=== PATIENT | female | born 1970 | race African-American/Black ===

== ENCOUNTER 2016-11-27 03:06 | Emergency (ER) | payer OTHER ==
[2016-11-27 03:20] VITALS: BP 91/62; PULSE 77; TEMP 98.5; BMI 25.4
[2016-11-27] MEDS ORDERED: SODIUM CHLORIDE 1,000 ML IV STA (03:29)
[2016-11-27 03:51] LABS: MCH 32.1 pg (25.7-33.7); MCHC 34.4 g/dl (32.0-36.0); MEAN CELL VOLUME 93.5 fl (80-96); MEAN PLT VOLUME 9.8 fl (7.5-11.1); PLATELET COUNT 332 K/MM3 (134-434); RDW 13.6 % (11.6-15.6); WHITE BLOOD COUNT 11.1 K/mm3 (4.0-10.0)
--- NOTE | 2016-11-27 04:10 | PDOC ---
History of Present Illness - General Chief Complaint: Weakness Stated Complaint: WEAKNESS Time Seen by Provider: 11/27/16 03:13 History Source: Patient, Significant Other Exam Limitations: No Limitations - History of Present Illness Travel History: No Initial Comments: 11/27/16 04:05 46yo Female patient presents to ED c/o "food poisoning." Patient states 1 week ago Sunday, she ate a sandwich and became really sick. Patient was seen by pcp Dr. Sawyer on Sunday and prescribed (Tylenol w/ Codeine) and told to rest. Patient states symptoms got worse/progressed to SOB, weakness with generalized abd pain. Patient reports she is able to tolerate po fluids/solids. Patient denies any other complaints. PCP Dr. Sawyer Timing/Duration: reports: getting worse Quality: reports: moderate Abdominal Pain Onset Location: reports: generalized abdomen Pain Radiation: reports: no radiation Activities at Onset: reports: no specific activity Treatment Prior to Arrive: worse with: analgesics, antacids, cold pack, heat, laxative, enema, other Aggravating Factors: worse with: None, Defecation, Eating, Emotional upset, Exertion, [place], Movement, Voiding, Change in position Alleviating Factors: worse with: None, Belching, Shallow Breathing, Defecation, Eating, Holding Breath, Passing Gas, Change in Position, Rest, Voiding, Vomiting Past History - Travel Traveled outside of the country in the last 30 days: No Close contact w/someone who was outside of country & ill: No - Past Medical History Allergies/Adverse Reactions: Allergies Allergy/AdvReac Type Severity Reaction Status Date / Time hydromorphone HCl Allergy Verified 11/27/16 03:52 [From Dilaudid] Home Medications: Ambulatory Orders Cholecalciferol (Vitamin D3) [Vitamin D3 -] 0 unit PO DAILY 11/27/16 Ciprofloxacin [Cipro (Restricted To Id)] 500 mg PO Q12H #20 tablet 11/27/16 Metronidazole [Flagyl -] 500 mg PO DAILY #20 tablet 11/27/16 Ondansetron [Zofran Odt -] 4 mg SL Q6H PRN #28 od.tablet 11/27/16 Cancer: Yes Cardiac Disorders: Yes (long qt, PM) - Psycho/Social/Smoking Cessation Hx Suicidal Ideation: No Smoking History: Never smoked Abd/GI Specific PMHX - Complaint Specific PMHX Colitis: No Diverticulitis: No Gall Bladder Disease: No GERD: No Hepatitis: No Irritable Bowel Synd (IBS): No Pancreatitis: No GI Ulcer Disease: No Review of Systems - Review of Systems Able to Perform ROS?: Yes Is the patient limited Sami proficient: No Constitutional: Yes: Malaise, Weakness. No: Chills, Fever Respiratory: No: Cough, Orthopnea, Shortness of Breath, Stridor, Wheezing, Productive cough Cardiac (ROS): No: Chest Pain, Lightheadedness, Palpitations, Syncope, Chest Tightness ABD/GI: Yes: Diarrhea. No: Constipated, Nausea, Poor Appetite, Poor Fluid Intake, Vomiting : No: Dysuria, Hematuria Musculoskeletal: No: Back Pain Integumentary: No: Erythema, Rash Neurological: No: Headache, Numbness, Paresthesia, Seizure, Tingling, Tremors, Weakness, Ataxia, Dizziness All Other Systems: Reviewed and Negative *Physical Exam - Vital Signs Last Vital Signs Temp Pulse Resp BP Pulse Ox 98.5 F 77 18 91/62 98 11/27/16 03:16 11/27/16 03:16 11/27/16 03:16 11/27/16 03:16 11/27/16 03:16 - Physical Exam General Appearance: Yes: Nourished, Appropriately Dressed, Moderate Distress. No: Apparent Distress, Mild Distress, Severe Distress Neck: positive: Trachea midline, Supple. negative: Lymphadenopathy (R), Lymphadenopathy (L) Respiratory/Chest: positive: Lungs Clear, Normal Breath Sounds. negative: Respiratory Distress, Accessory Muscle Use, Labored Respiration, Rapid RR Cardiovascular: positive: Regular Rhythm, Regular Rate. negative: Edema, JVD, Murmur Gastrointestinal/Abdominal: positive: Soft, Decreased BS, Tenderness ( Generalized). negative: Normal Bowel Sounds, Distended, Guarding, Rebound Musculoskeletal: positive: Normal Inspection. negative: CVA Tenderness Extremity: positive: Normal Capillary Refill, Normal Inspection, Normal Range of Motion Integumentary: positive: Normal Color, Dry, Warm Neurologic: positive: health safety specialist II-XII NML intact, Fully Oriented, Alert, Normal Mood/ Affect, Normal Response, Motor Strength 5/5 ED Treatment Course - LABORATORY CBC & Chemistry Diagram: 11/27/16 03:38 11/27/16 03:38 - ADDITIONAL ORDERS Additional order review: Laboratory Results 11/27/16 03:38 Sodium Cancelled Potassium Cancelled Chloride Cancelled Carbon Dioxide Cancelled Anion Gap Cancelled BUN Cancelled Creatinine Cancelled Random Glucose Cancelled Calcium Cancelled 11/27/16 03:38 RBC 4.37 MCV 93.5 MCHC 34.4 RDW 13.6 MPV 9.8 Neutrophils % Gre Instructor Lymphocytes % Gre Instructor Monocytes % Gre Instructor Eosinophils % Gre Instructor Basophils % Gre Instructor - RADIOLOGY Radiology Studies Ordered: Category Date Time Status ABDOMEN FLAT & UPRIGHT [RAD] Stat Radiology 11/27/16 03:30 Taken CHEST X-RAY PORTABLE* [RAD] Stat Radiology 11/27/16 03:22 Taken Progress Note - Progress Note Progress Note: Report Viewer powered by: [employer] Name: Migue Mena : 1970 Sex: F Study Date & Time: 11/27/201603:53:47 Description: ABDOMEN FLAT & UPRIGHT Airdox Fitter: ([id number]) Begin of Report Content Referring Physician: Artem Kitchen Patient Name: Kt Camarena THIS IS A PRELIMINARYREPORT FROM IMAGING SHIPPING CLERK/ADMIN EXAM: Supine and erect abdomen x-ray IMAGES: 3 EXAM DATE AND TIME: 2016-11-27 03:53:47.0 REASON FOR EXAM: Question obstruction COMPARISON: No FINDINGS: Nonspecific nonobstructive bowel gas pattern is noted. No free intraperitoneal air identified. No acute intra-abdominal abnormalities are detected. Pacemaker and wires noted. The visualized portions of the lungs (excluding the apices) are clear. THIS DOCUMENT HAS BEEN ELECTRONICALLY SIGNED Daren Gottlieb MD 11/27/2016 04:31 [place] Carlin Please call Imaging Control Supervisor [phone]) with questions. *DC/Admit/Observation/Transfer Diagnosis at time of Disposition: Food poisoning Qualifiers: Encounter type: initial encounter Injury intent: accidental or unintentional Qualified Code(s): T62.91XA - Toxic effect of unspecified noxious substance eaten as food, accidental (unintentional), initial encounter - Discharge Dispostion Disposition: HOME Condition at time of disposition: Improved Admit: No - Prescriptions Prescriptions: Ciprofloxacin [Cipro (Restricted To Id)] 500 mg PO Q12H #20 tablet Metronidazole [Flagyl -] 500 mg PO DAILY #20 tablet Ondansetron [Zofran Odt -] 4 mg SL Q6H PRN #28 od.tablet PRN Reason: nausea. - Patient Instructions Printed Discharge Instructions: DI for Food Poisoning Additional Instructions: FOLLOW UP WITH YOUR DOCTOR THIS WEEK FOR FURTHER EVALUATION. CONTINUE TO HYDRATE YOURSELF UNTIL APPETITE RETURNS AND YOU ARE ARE TOLERATED FOODS. TAKE ANTIBIOTICS WITH FOOD IF ABLE. GET LOTS OF REST. NO WORK X 5 DAYS, I HAVE SUPPLIED A WORK NOTE. RETURN IF WORSENING OF SYMPTOMS. Print Language: AZERI - Post Discharge Activity Work/School Note: Back to Work
[2016-11-27 04:12] LABS: ALBUMIN 3.4 g/dl (3.4-5.0); ALK PHOS 66 U/L (45-117); ANION GAP 11 (8-16); BILIRUBIN,TOTAL 0.7 mg/dL (0.2-1.0); CALCIUM 8.7 mg/dL (8.5-10.1); CO2 26 mmol/L (21-32); CREATININE 0.8 mg/dL (0.55-1.02); GLUCOSE,RANDOM 93 mg/dL (74-106); SGPT/ALT 21 U/L (12-78); TOT PROT 7.6 g/dl (6.4-8.2)
[2016-11-27 04:14] LABS: SGOT/AST 30 U/L (15-37)
[2016-11-27 04:15] LABS: TROPONIN I < 0.02 ng/ml (0.00-0.05)
[2016-11-27 04:25] LABS: AMYLASE 49 U/L (25-115)
[2016-11-27] MEDS ORDERED: metroNIDAZOLE 250 MG TABLET PO ONE (05:32)
[2016-11-27] MEDS ORDERED: metroNIDAZOLE 250 MG TABLET ONE (05:40)
[2016-11-27 06:05] LABS: ANISOCYTOSIS OCC; PLATELET ESTIMATE ADEQUATE (NORMAL)
--- NOTE | 2016-11-27 12:21 | EKG ---
Test Reason : Blood Pressure : / mmHG Vent. Rate : 079 BPM Atrial Rate : 079 BPM P-R Int : 138 ms QRS Dur : 082 ms QT Int : 410 ms P-R-T Axes : 065 024 036 degrees QTc Int : 470 ms NORMAL SINUS RHYTHM POSSIBLE LEFT ATRIAL ENLARGEMENT LOW VOLTAGE QRS BORDERLINE ECG WHEN COMPARED WITH ECG OF 15-APR-2011 09:24, NO SIGNIFICANT CHANGE WAS FOUND Confirmed by JOVANA SUAREZ MD ([id number]) on 11/27/2016 12:20:37 PM Referred By: Confirmed By:JOVANA SUAREZ MD
[2016-11-28 14:43] LABS: BILIRUBIN,DIRECT < 0.1 mg/dL (0.0-0.2)
== END 2016-11-27 05:58 | disposition home or self-care (01) ==
LOC: JER 03:06
PROC: 3E0337Z Introduction of Electrolytic and Water Balance Substance into Peripheral Vein, Percutaneous Approach (ICD-10-PCS; principal; 2016-11-27)
DX: T62.8X1A Toxic effect of other specified noxious substances eaten as food, accidental (unintentional), initial encounter (principal); R10.84 Generalized abdominal pain; Y92.89 Other specified places as the place of occurrence of the external cause
CPT/HCPCS: 36415; 71010-TC; 74020-TC; 80053; 80076; 82150; 82550; 83690; 84484; 85025; 93005; 93010; 99282-25

== ENCOUNTER 2017-08-01 02:49 | Emergency (ER) | payer OTHER ==
[2017-08-01 03:14] VITALS: BP 108/69; PULSE 84; TEMP 98.5; BMI 25.2
[2017-08-01] MEDS ORDERED: ALBUTEROL SO4 2.5/IPRATROPIUM 0.5 INH SOL 3 ML VIAL.NEB. NEB ONE ×2 (03:29→03:47)
[2017-08-01] MEDS ORDERED: ACETAMINOPHEN 325 MG TABLET (FP) PO ONE (03:29)
--- NOTE | 2017-08-01 03:41 | PDOC ---
History of Present Illness - General Chief Complaint: Shortness of Breath Stated Complaint: S.O.B. Time Seen by Provider: 08/01/17 03:23 History Source: Patient - History of Present Illness Initial Comments: 08/01/17 04:41 46-year-old Female complaining of cough, URI, throat pain, shortness of breath with cough at home.. Patient has a past medical history of prolonged QTC with ICD. reports feeling chills no fever at home. Past History - Past Medical History Allergies/Adverse Reactions: Allergies Allergy/AdvReac Type Severity Reaction Status Date / Time hydromorphone HCl Allergy Verified 08/01/17 03:21 [From Dilaudid] vancomycin Allergy Verified 08/01/17 03:21 Home Medications: Ambulatory Orders Cholecalciferol (Vitamin D3) [Vitamin D3 -] 0 unit PO DAILY 11/27/16 Metronidazole [Flagyl -] 500 mg PO DAILY #20 tablet 11/27/16 Ondansetron [Zofran Odt -] 4 mg SL Q6H PRN #28 od.tablet 11/27/16 Azithromycin 250 mg PO BIDLASIX #6 tablet 08/01/17 Cancer: Yes Cardiac Disorders: Yes (long qt, PM) COPD: No - Suicide/Smoking/Psychosocial Hx Smoking History: Never smoked Have you smoked in the past 12 months: No Information on smoking cessation initiated: No Hx Alcohol Use: No Drug/Substance Use Hx: No Substance Use Type: None Review of Systems - Review of Systems Able to Perform ROS?: Yes Is the patient limited Hebrew proficient: No HEENTM: Yes: Nose Congestion, Throat Pain Respiratory: Yes: Cough, Shortness of Breath, Productive cough (green sputum) Cardiac (ROS): No: Symptoms Reported, See HPI, Chest Pain, Edema, Irregular Heart Rate, Lightheadedness, Palpitations, Syncope, Chest Tightness, Other ABD/GI: No: Symptoms Reported, See HPI, Abdominal Distended, Abd. Pain w/ defecation, Blood Streaked Bowels, Constipated, Diarrhea, Difficulty Swallowing , Nausea, Poor Appetite, Poor Fluid Intake, Rectal Bleeding, Vomiting, Indigestion, Abdominal cramping, Tarry Stools, Other *Physical Exam - Vital Signs Last Vital Signs Temp Pulse Resp BP Pulse Ox 98.5 F 84 18 108/69 99 08/01/17 03:16 08/01/17 03:11 08/01/17 03:11 08/01/17 03:11 08/01/17 03:11 - Physical Exam General Appearance: Yes: Appropriately Dressed HEENT: negative: EOMI, NYA, Normal ENT Inspection, Normal Voice, Symmetrical, TMs Normal, Pharynx Normal, Pale Conjunctivae, Photophobia, Scleral Icterus (R) , Scleral Icterus (L), Muffled/Hoarse voice, Pharyngeal Erythema, Tonsillar Exudate, Tonsillar Erythema, Nasal Congestion, Rhinorrhea, Sinus Tenderness, Orbits, Hearing Decreased, Hearing Grossly Normal, TM Bulging, TM Dull, TM Erythema, Lesions, Olivia, Excessive drooling, Thrush, Other Respiratory/Chest: positive: Lungs Clear, Normal Breath Sounds Gastrointestinal/Abdominal: positive: Normal Bowel Sounds, Soft Extremity: positive: Normal Capillary Refill, Normal Inspection, Normal Range of Motion Integumentary: positive: Normal Color, Dry, Warm Neurologic: positive: Fully Oriented, Normal Mood/Affect Progress Note - Progress Note Progress Note: A: bronchitis P: chest xray: no acute disease albuterol not given due to adverse effect of prolonged QTc> azithromycin. strict return precautions reviewed with patient. *DC/Admit/Observation/Transfer Diagnosis at time of Disposition: Bronchitis - Discharge Dispostion Disposition: HOME - Prescriptions Prescriptions: Azithromycin 250 mg PO BIDLASIX #6 tablet - Referrals Referrals: Hector Sawyer MD [Primary Care Provider] - Call tomorrow - Patient Instructions Printed Discharge Instructions: DI for Acute Bronchitis Additional Instructions: take azithromycin as as prescribed. take tylenl or ibuprofen every 6 hours as needed for pain. follow up with your doctor as soon as possible. return to the ER if symptoms worsen.
[2017-08-01] MEDS ORDERED: ACETAMINOPHEN 325 MG TABLET (FP) ONE (03:47)
[2017-08-01] MEDS ORDERED: SODIUM CHLORIDE FOR INHALATION 3 ML VIAL.NEB IH ONE (04:04)
--- NOTE | 2017-08-01 05:03 | PDOC ---
*Physical Exam - Vital Signs Last Vital Signs Temp Pulse Resp BP Pulse Ox 98.5 F 84 18 108/69 99 08/01/17 03:16 08/01/17 03:11 08/01/17 03:11 08/01/17 03:11 08/01/17 03:11 ED Treatment Course - Medications Given in the ED: ED Medications Discontinued Medications Generic Name Dose Route Start Last Admin Trade Name Vanita PRN Reason Stop Dose Admin Acetaminophen 650 mg 08/01/17 03:29 08/01/17 04:15 Tylenol - PO 08/01/17 03:30 650 mg ONCE ONE Administration Albuterol/Ipratropium 1 amp 08/01/17 03:29 08/01/17 04:16 Duoneb - NEB 08/01/17 03:30 Not Given ONCE ONE Sodium Chloride 3 ml 08/01/17 04:04 08/01/17 04:20 Normal Saline For Inhalation - IH 08/01/17 04:05 3 ml ONCE ONE Administration Medical Decision Making - Medical Decision Making 08/01/17 05:03 agree with care from MARIA ESTHER Lai *DC/Admit/Observation/Transfer Diagnosis at time of Disposition: Bronchitis - Prescriptions Prescriptions: Azithromycin 250 mg PO BIDLASIX #6 tablet - Referrals Referrals: Hector Sawyer MD [Primary Care Provider] - Call tomorrow - Patient Instructions Printed Discharge Instructions: DI for Acute Bronchitis Additional Instructions: take azithromycin as as prescribed. take tylenl or ibuprofen every 6 hours as needed for pain. follow up with your doctor as soon as possible. return to the ER if symptoms worsen. - Post Discharge Activity
== END 2017-08-01 06:04 | disposition home or self-care (01) ==
LOC: JER 02:49
PROC: 3E0F7GC Introduction of Other Therapeutic Substance into Respiratory Tract, Via Natural or Artificial Opening (ICD-10-PCS; principal; 2017-08-01)
DX: J40 Bronchitis, not specified as acute or chronic (principal); Z85.9 Personal history of malignant neoplasm, unspecified; I45.81 Long QT syndrome
CPT/HCPCS: 71020-TC; 99283-25

== ENCOUNTER 2018-02-26 11:28 | Observation (INO) | payer OTHER ==
--- NOTE | 2018-02-26 12:06 | PDOC ---
History of Present Illness - General Chief Complaint: CVA/TIA Stated Complaint: Syncope/Near Syncope Time Seen by Provider: 02/26/18 11:45 History Source: Patient Exam Limitations: No Limitations - History of Present Illness Initial Comments: 02/26/18 12:12 The patient is a 47F with a PMH of long QT (s/p [employer] Sci pacemaker and defib) , esophageal CA? who presents to the ER with AMS. The patient cannot provide any history and she is currently non-verbal. Hx is provided by her . The states that the patient has had a headache that has worsened over the past 3-4 days. They were at an urgent care today when the patient became nonverbal and only responded by nodding or shaking her head. She has no acute complaints. Last known well is 1105 today. She denies any fever, chills, nausea , vomiting, CP, SOB. tPA Exclusion Checklist 0-3hr - Time Elapsed Date last known well: 02/26/18 Time last known well: 11:05 Elaspsed time: Day(s) and 5 Hour(s) and 51 Minutes - Thrombolytic Therapy Candidate Is the patient eligible for Thrombolytic Therapy?: No - Exclusion Criteria 0-3hr SBP greater than 185 or DBP greater than 110mmHg despite tx: No Recent IC/spinal surgery,head trauma or stroke w/in last 3mo: No Hx of previous IC hemorrhage, IC neoplasm, AVM or aneurysm: No Active internal bleeding: No Blding diathesis(low plt ct, inc PTT,INR>1.7 or use of NOAC): No Symptoms suggest subarachnoid hemorrhage: No CT demonstrates multilobar infarct(>1/3 cerebral hemiphere): No Arterial puncture at noncompressible site in previous 7 days: No Blood glucose concentration less than 50mg/dL (2.7mmol/L): No - Ineligibility reason(s) Reasons No tPA given: See reason(s) noted above (Pt's presentation is not consistent with thrombotic intracranial event.) NIH Stroke Scale - Last Known Well Date/Time & Onset Date Last Known Well: 02/26/18 Time Last Known Well: 11:05 - Initial Evaluation Level of consciousness: Alert Ask patient the month and their age: Both incorrect Ask patient to open & close eyes; make fist and let go: Obeys both correctly Best gaze (horizontal eye movement): Normal Visual field testing: No visual field loss Facial paresis (Show teeth/raise eyebrows/close eyes tight): Normal symmetrical movement Motor Function: Left Arm: Some effort against gravity Motor Function: Right Arm: No movement Motor Function: Left Leg: No movement Motor Function: Right Leg: No movement Limb Ataxia: Untestable (Joint fused or limb amputated), explain: Sensory(Use pinprick test arms,legs,trunk,face/side to side): Normal Best language (Describe picture, name items, read sentences): Mute Dysarthria (read several words): Near unintelligible or unable to speak Extinction and Inattention: No abnormality - Total Score NIH Stroke Scale Score: 21 Past History - Past Medical History Allergies/Adverse Reactions: Allergies Allergy/AdvReac Type Severity Reaction Status Date / Time hydromorphone HCl Allergy Verified 02/26/18 11:51 [From Dilaudid] vancomycin Allergy Verified 02/26/18 11:51 Home Medications: Ambulatory Orders Cholecalciferol (Vitamin D3) [Vitamin D3 -] 0 unit PO DAILY 11/27/16 Ondansetron [Zofran Odt -] 4 mg SL Q6H PRN #28 od.tablet 11/27/16 metroNIDAZOLE [Flagyl -] 500 mg PO DAILY #20 tablet 11/27/16 Azithromycin 250 mg PO BIDLASIX #6 tablet 08/01/17 Cancer: Yes (esophageal) Cardiac Disorders: Yes (long qt, PM) COPD: No GI Disorders: Yes (gerd) Other medical history: etopic preg - Surgical History Cardiac Surgery: Yes (icd) - Suicide/Smoking/Psychosocial Hx Smoking History: Never smoked Have you smoked in the past 12 months: No Information on smoking cessation initiated: No Hx Alcohol Use: No Drug/Substance Use Hx: No Substance Use Type: None Review of Systems - Review of Systems Able to Perform ROS?: No (nonverbal) Is the patient limited Somali proficient: No *Physical Exam - Vital Signs Last Vital Signs Temp Pulse Resp BP Pulse Ox 98.2 F 76 20 126/86 100 02/26/18 11:45 02/26/18 11:45 02/26/18 11:45 02/26/18 11:45 02/26/18 11:45 - Physical Exam Comments: 02/26/18 12:31 GENERAL: Well developed, well nourished. Awake and alert. No acute distress. HEENT: Normocephalic, atraumatic. Hearing grossly normal. Moist mucous membranes. PERRLA, EOMI. No conjunctival pallor. Sclera are non-icteric. Oropharynx is clear. NECK: Supple. Full ROM. CARDIOVASCULAR: Regular rate and rhythm. No murmurs, rubs, or gallops. PULMONARY: No evidence of respiratory distress. Lungs clear to auscultation bilaterally. No wheezing, rales or rhonchi. ABDOMINAL: Soft. Non-tender. Non-distended. No rebound or guarding. GENITOURINARY: No CVA tenderness bilaterally. MUSCULOSKELETAL: Normal range of motion at all joints. No bony deformities or tenderness. EXTREMITIES: No cyanosis. No clubbing. No edema. No calf tenderness or swelling. SKIN: Warm and dry. Normal capillary refill. No rashes. No jaundice. NEUROLOGICAL: Alert, awake, appropriate. Cranial nerves 2-12 intact. No deficits to light touch and temperature in face, upper extremities and lower extremities. No motor deficits in the in face, upper extremities and lower extremities. Normal speech. PSYCHIATRIC: Cooperative. Good eye contact. Appropriate mood and affect. ED Treatment Course - LABORATORY CBC & Chemistry Diagram: 02/26/18 12:15 02/26/18 12:15 Medical Decision Making - Medical Decision Making 02/26/18 12:32 The patient is a 47F with a PMH of long QT with defibrillator who presents to the ER with acute onset nonverbal. Pt's has no hx of seizures and had shaking episodes but was responding during them by nodding or shaking her head. Code valdes was activated. Negative head CT. Pt's symptoms do not correlate with a thrombotic event. Will not give TPA. Will give ativan for comfort and reassess. Pending labs. 02/26/18 14:05 Labs significant only for hyperkalemia of 5.3. EKG NSR with short ME, no hyperacute T waves or QRS widening. Will discuss with attending. 02/26/18 14:20 CXR negative. Pt woke up to physical stimulation and mumbled her name then fell back asleep. Will monitor closely. 02/26/18 16:21 Upreg negative. Will give reglan, toradol, and fluids to treat migraine. Pt is still not verbalizing, but she did earlier. Will monitor. 02/26/18 16:56 Pt is verbalizing slightly more than before. Slightly moving all 4 extremities. Will page for obs. I have endorsed the patient to Dr. Valverde for admission. *DC/Admit/Observation/Transfer Diagnosis at time of Disposition: Migraine Qualifiers: Migraine type: unspecified Status migrainosus presence: without status migrainosus Intractability: not intractable Qualified Code(s): G43.909 - Migraine, unspecified, not intractable, without status migrainosus Altered mental status, unspecified Qualifiers: Altered mental status type: unspecified Qualified Code(s): R41.82 - Altered mental status, unspecified - Discharge Dispostion Condition at time of disposition: Stable Decision to Admit order: Yes - Referrals Referrals: Hector Sawyer MD [Primary Care Provider] - - Patient Instructions - Post Discharge Activity
--- NOTE | 2018-02-26 12:18 | PDOC ---
Attending Attestation - Resident Resident Name: Augie Cuadra - ED Attending Attestation I have performed the following: I have examined & evaluated the patient, The case was reviewed & discussed with the resident, I agree w/resident's findings & plan - HPI HPI: 02/26/18 12:12 47y/o F h/o prolonged qt with pcm/defibrillator, depression, esophageal ca bib friend from [facility] with episode of altered state of consciousness. Pt c/o few days of headache, ? with associated vomiting. Presented to urgent care for evaluation then had near syncope with "shaking" but no seizure like activity/ incontinence. Since then, staring only and following some commands but not moving any extremities. no trauma, no h/o seizures. - Physicial Exam PE: 02/26/18 12:18 VS wnl, afebrile and glucose in field 114 alert, making eye contact, nodding yes but not speaking PERRL, neck supple s1s2 rrr, ctab, abd soft moving L index finger but nothing else. tone otherwise wnl subsequently after CT noted to have purposeful shaking movements of her entire body, alert during the event making eye contact and still nodding appropriately -- not consistent with seizure - Critical Care Time Total Critical Care Time: 80 Critical Care Statement: The care of this patient involved high complexity decision making to prevent further life threatening deterioration of the patient 's condition and/or to evaluate & treat vital organ system(s) failure or risk of failure. - Medical Decision Making 02/26/18 12:20 47-year-old female with history of prolonged QT defibrillator, esophageal CA, headaches presents with episode of decreased responsiveness, near syncope. Given recent headaches, code sadnoval activated to rule out hemorrhagic CVA, metastatic brain lesion is also on the differential, but given patient's presentation and exam question process such as migraine versus pseudoseizure versus psychosomatic code valdes activated ct head without acute pathology discussed with Dr. Clark balloon tester neurology, agrees not consistent with acute thrombotic event and does not meet criteria for tpa. ? migraine v. psych will give ativan as anxiolytic, reassess 02/26/18 15:30 received ativan and slept, now remains arousable/alert and following commands, not in acute distress but still c/o headache. labs normal, HCG pending. will treat for migraine with reglan and ivf and reassess. admits to stressors but denies h/o severe depression/anxiety/panic attacks. 02/26/18 16:32 receiving treatment for migraine with reglan/ivf/toradol. If still no improvement will need admission for further neuro eval +/- psychiatry. Not consistent with infectious process, ct imaging confirmed wnl, labs wnl, not consistent with acute tox presentation. 02/26/18 16:47 after toradol, reglan, iv fluids, headache improved and patient's mental status beginning to improve markedly. now talking, speaking full coherent sentences slowly. moving b/l hands/feet and noted by RN to move RUE with good force. denies any other concerning complaints and states is improving. Confirms she has h/o migraines but never this bad. Admits to increasing stressors at work and with her mom (dementia at [facility]). will continue neuro checks, admit overnight for monitoring, neuro on board. consider psych if no improvement. Heart Score/ECG Review #1 ECG reviewed & interpreted by me at: 12:06 General ECG Interpretation: Sinus Rhythm, Normal Rate (70), Normal Intervals ( qtc 451), No acute ischemic changes
[2018-02-26 12:23] LABS: BASO % 0.8 % (0-2.0); EOS % 1.4 % (0-4.5); HEMATOCRIT 41.5 % (32.4-45.2); HEMOGLOBIN 13.8 GM/dL (10.7-15.3); LYMPH % 21.4 % (8-40); MCH 31.3 pg (25.7-33.7); MCHC 33.3 g/dl (32.0-36.0); MONO % 10.5 % (3.8-10.2); NEUT % 65.9 % (42.8-82.8); PLATELET COUNT 352 K/MM3 (134-434); RBC 4.42 M/mm3 (3.60-5.2); RDW 12.9 % (11.6-15.6)
[2018-02-26] MEDS ORDERED: LORazepam 2 MG/ML SDV VIAL ONE (12:36)
[2018-02-26 12:38] LABS: INR 1.04 (0.82-1.09); PROTHROMBIN TIME (PATIENT) 11.7 SEC (9.7-13.0)
[2018-02-26 12:48] LABS: ALBUMIN 3.6 g/dl (3.4-5.0); ANION GAP 6 (8-16); BLOOD UREA NITROGEN 7 mg/dL (7-18); CHLORIDE 105 mmol/L (98-107); CO2 26 mmol/L (21-32); GLUCOSE,RANDOM 96 mg/dL (74-106); SODIUM 137 mmol/L (136-145)
[2018-02-26 12:51] LABS: ALK PHOS 60 U/L (45-117); BILIRUBIN,TOTAL 0.4 mg/dL (0.2-1.0); CHOLESTEROL 206 mg/dL (50-200); CREATININE 0.7 mg/dL (0.55-1.02); HDL CHOLESTEROL 53 mg/dL (40-60); SGPT/ALT 15 U/L (12-78); TOT PROT 8.2 g/dl (6.4-8.2); TRIGLYCERIDES 76 mg/dL (35-160)
[2018-02-26 13:14] LABS: POTASSIUM 5.3 mmol/L (3.5-5.1); SGOT/AST 20 U/L (15-37)
--- NOTE | 2018-02-26 14:46 | EKG ---
Test Reason : Blood Pressure : / mmHG Vent. Rate : 070 BPM Atrial Rate : 070 BPM P-R Int : 110 ms QRS Dur : 074 ms QT Int : 418 ms P-R-T Axes : 052 051 053 degrees QTc Int : 451 ms SINUS RHYTHM WITH SHORT TX LOW VOLTAGE QRS BORDERLINE ECG WHEN COMPARED WITH ECG OF 27-NOV-2016 03:33, NO SIGNIFICANT CHANGE WAS FOUND Confirmed by MD Lorena, Maurice ([id number]) on 02/26/2018 2:46:03 PM Referred By: Confirmed By:Maurice Carrillo MD
[2018-02-26] MEDS ORDERED: SODIUM CHLORIDE 1,000 ML IV ONE (15:36)
[2018-02-26] MEDS ORDERED: METOCLOPRAMIDE HCL INJECTION 10 MG/2 ML VIAL IVPB ONE (15:36)
[2018-02-26] MEDS ORDERED: KETOROLAC TROMETHAMINE 30 MG/1 ML VIAL IVPUSH ONE ×2 (16:09→16:14)
[2018-02-26] MEDS ORDERED: KETOROLAC TROMETHAMINE 30 MG/1 ML VIAL ONE (16:15)
[2018-02-26] MEDS ORDERED: METOCLOPRAMIDE HCL INJECTION 10 MG/2 ML VIAL ONE (16:15)
--- NOTE | 2018-02-26 18:08 | HP ---
CHIEF COMPLAINT:"my was shaking" PCP:used to be Dr. 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 The patient was able to provide very little history as she is very lethargic but is slowly able to speak more as time passes. History taken from ED chart, ED providers, and at bedside. and patient both state that patient has been suffering from headahces for past few months but past few days headache has been getting worse which prompted her to seek medical attention at urgent care. While the patient was there she was being interviewed by the doctors when all of a sudden she froze and then started shaking. Her eyes never rolled behind her head, she never had any foaming at the mouth, she neevr lost bowel or bladder control, and she was able to respond by nodding or shaking her head during the episode. The patient continued into a mute and what is described as a catatonic state where she no longer responded and became lethargic. The patient states she took old 7.5mg vicodin for the headache which did not help. per ED chart last known well is 11:05am today. She denies any vomiting, fever, chills, chest pain, shortness of breath, hematuria or dysuria. She does endorse nausea. She does complain of feeling the urge to urinate a lot lately. She denies any other symptoms. She denies this ever happening before as does her . She has been under a lot of stress for the past 6 years with her mother who is demented and in and out of nursing homes especially at [facility]. She is also having issues with her 11 year old son, Possibly legal issues, and has been under a lot of pressure and stress at work. 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 She states she had the endorcrine colon tumor removed by Dr. veronica this past July and they also did another colonoscopy to tattoo the area. there are no plans for resection per and patient. She also states she had a hysterectomy because of cancer thepatient is lethargic and details are unclear. Denies recent sick contacts or travel ER course was notable for: (1)Labs (2)CXR Head CT (3)IVF Recent Travel:Denies PAST MEDICAL HISTORY:long QT s/p ICD endocrine colon tumor Vit D deficiency possible uterine cancer PAST SURGICAL HISTORY:hysterectomy, colonoscopy, pacemaker insertion Social History: Smoking:Denies Alcohol:Denies Drugs: Denies Allergies hydromorphone HCl [From Dilaudid] Allergy (Verified 02/26/18 11:51) vancomycin Allergy (Verified 02/26/18 11:51) HOME MEDICATIONS: Home Medications Medication Instructions Recorded Cholecalciferol (Vitamin D3) 0 unit PO DAILY 11/27/16 [Vitamin D3 -] Ondansetron [Zofran Odt -] 4 mg SL Q6H PRN #28 od.tablet 11/27/16 metroNIDAZOLE [Flagyl -] 500 mg PO DAILY #20 tablet 11/27/16 Azithromycin 250 mg PO BIDLASIX #6 tablet 08/01/17 REVIEW OF SYSTEMS CONSTITUTIONAL: Absent: fever, chills, diaphoresis, malaise, loss of appetite, weight change Present:generalized weakness HEENT: Absent: rhinorrhea, nasal congestion, throat pain, throat swelling, difficulty swallowing, mouth swelling, ear pain, eye pain, visual changes CARDIOVASCULAR: Absent: chest pain, syncope, palpitations, irregular heart rate, lightheadedness , peripheral edema RESPIRATORY: Absent: cough, shortness of breath, dyspnea with exertion, orthopnea, wheezing, stridor, hemoptysis GASTROINTESTINAL: Absent: abdominal pain, abdominal distension, vomiting, diarrhea, constipation, melena, hematochezia Present: Nausea GENITOURINARY: Absent: dysuria, frequency, hesitancy, hematuria, flank pain, genital pain Present: Urgency MUSCULOSKELETAL: Absent: myalgia, arthralgia, joint swelling, back pain, neck pain SKIN: Absent: rash, itching, pallor Present: white blotching of skin of lower extremities HEMATOLOGIC/IMMUNOLOGIC: Absent: easy bleeding, easy bruising, lymphadenopathy, frequent infections ENDOCRINE: Absent: unexplained weight gain, unexplained weight loss, heat intolerance, cold intolerance NEUROLOGIC: Absent: headache, focal weakness or paresthesias, dizziness, unsteady gait, seizure, mental status changes, bladder or bowel incontinence Present: tingling in fingers PSYCHIATRIC: Absent: anxiety, depression, suicidal or homicidal ideation, hallucinations. Present: many home and work stressors PHYSICAL EXAMINATION Vital Signs - 24 hr 02/26/18 02/26/18 02/26/18 11:45 12:19 12:22 Temperature 98.2 F Pulse Rate 76 71 Pulse Rate [ Apical] Respiratory 20 Rate Blood Pressure 126/86 Blood Pressure [Left Arm] O2 Sat by Pulse 100 100 100 Oximetry (%) 02/26/18 02/26/18 02/26/18 13:00 13:30 14:00 Temperature Pulse Rate Pulse Rate [ 69 71 62 Apical] Respiratory 13 13 18 Rate Blood Pressure Blood Pressure 105/67 96/70 100/88 [Left Arm] O2 Sat by Pulse 100 100 100 Oximetry (%) 02/26/18 02/26/18 02/26/18 14:45 15:30 16:00 Temperature Pulse Rate Pulse Rate [ 67 72 64 Apical] Respiratory 18 15 14 Rate Blood Pressure Blood Pressure 113/74 106/76 102/77 [Left Arm] O2 Sat by Pulse 100 Oximetry (%) 02/26/18 16:30 Temperature Pulse Rate Pulse Rate [ 74 Apical] Respiratory 14 Rate Blood Pressure Blood Pressure 101/78 [Left Arm] O2 Sat by Pulse Oximetry (%) GENERAL: lethargic. in and out of consciousness. Does not follow all commands. HEAD: Normal with no signs of trauma. EYES: Pupils equal, round and reactive to light. will not participate in Extra ocular movements. EARS, NOSE, THROAT: Moist mucous membranes. LUNGS: Poor effort but Breath sounds equal, clear to auscultation bilaterally HEART: Regular rate and rhythm, normal S1 and S2 without murmur ABDOMEN: Soft, non distended, mild supra pubic tenderness MUSCULOSKELETAL: No CVA tenderness. UPPER EXTREMITIES: warm, well-perfused. No clubbing. LOWER EXTREMITIES: warm, well-perfused. no calf tenderness. No peripheral edema. NEUROLOGICAL: does not participate in cranial nerve exam. Will not participate in strength exam. PSYCHIATRIC: lethargic. anxious SKIN: Warm, dry, normal turgor, normal capillary refill. white blotchiness on dark skin of medial LLE below the knee Laboratory Results - last 24 hr 02/26/18 02/26/18 02/26/18 12:15 12:15 12:15 WBC 8.0 RBC 4.42 Hgb 13.8 Hct 41.5 MCV 94.0 MCH 31.3 MCHC 33.3 RDW 12.9 Plt Count 352 MPV 9.0 Neutrophils % 65.9 D Lymphocytes % 21.4 D Monocytes % 10.5 H Eosinophils % 1.4 Basophils % 0.8 Nucleated RBC % 0 PT with INR 11.70 INR 1.04 Sodium 137 Potassium 5.3 H Chloride 105 Carbon Dioxide 26 Anion Gap 6 L BUN 7 Creatinine 0.7 Creat Clearance w eGFR > 60 Random Glucose 96 Calcium 9.0 Total Bilirubin 0.4 D AST 20 ALT 15 Alkaline Phosphatase 60 Creatine Kinase 76 Troponin I < 0.02 Total Protein 8.2 Albumin 3.6 Triglycerides 76 Cholesterol 206 H Total LDL Cholesterol 141 H HDL Cholesterol 53 Serum , Qual Blood Type Antibody Screen 02/26/18 02/26/18 12:15 14:44 WBC RBC Hgb Hct MCV MCH MCHC RDW Plt Count MPV Neutrophils % Lymphocytes % Monocytes % Eosinophils % Basophils % Nucleated RBC % PT with INR INR Sodium Potassium Chloride Carbon Dioxide Anion Gap BUN Creatinine Creat Clearance w eGFR Random Glucose Calcium Total Bilirubin AST ALT Alkaline Phosphatase Creatine Kinase Troponin I Total Protein Albumin Triglycerides Cholesterol Total LDL Cholesterol HDL Cholesterol Serum , Qual Negative Blood Type Cancelled Antibody Screen Cancelled EKG: NSR CXR: Clear ICD in place Head CT: No acute pathology ASSESSMENT/PLAN: 47F with history of long QT presents to the ED with altered mental status and unexplained shaking, losing the ability to speak. Episode of shaking: Patient was still able to communicate during the episode with head nods and shaking. patient is slowly improving with time. Possible this is a psychiatric event (catatonia and patient became mute) secondary to many stressors at home and work will consult psychiatrist observe for now frequent neurochecks will consider neurology if headaches do not improve. 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 Skin Blotching: Will observe Denies allergies or recent changes in detergents or other skin irritants Nausea: antiemetics PRN Avoid Xofran due to prolonged QT-QTc WNL on EKG History of colon endorcrine tumor per patient: f/u with Dr. Lantin as outpatient for follow up plan history of uterine cancer: s/p hysterectomy outpatient follow up FEN: NS @ 50ml/hr repeat BMP for mild hyperkalemia low sodium/low fat diet PPx: HSQ/SCDs no GI PPx indicated PT consult to avoid deconditioning Case discussed with attending Dr. Ceja Will need to follow up with a new PCP. Will give patient option to come to continuity clinic. Visit type - Emergency Visit Emergency Visit: Yes ED Registration Date: 02/26/18 Care time: The patient presented to the Emergency Department on the above date and was hospitalized for further evaluation of their emergent condition. - New Patient This patient is new to me today: Yes Date on this admission: 02/26/18 - Critical Care Critical Care patient: No Hospitalist Screening - Colonoscopy Questionnaire Colonoscopy Questionnaire: Colonoscopy Questionnaire - Patient: 50 - 75 years old and never had a screening colonoscopy: No History of colon or rectal polyps, or CA: Yes History of IBD, Crohn's disease or UC: No History of abdominal radiation therapy as a child: No - Relative: 1 with colon or rectal CA, or polyps at age 60 or younger: No Colon or rectal CA diagnosed at age 45 or younger: Yes Multiple relatives with colon or rectal CA: No (followed by GI and had colonoscopy) - Outcome: Screening Result: Positive Screen
[2018-02-26] MEDS ORDERED: HEPARIN NA (PORCINE) 5,000 UNITS/ML 1ML VIAL SQ ONE (18:15)
[2018-02-26] MEDS ORDERED: HEPARIN NA (PORCINE) 5,000 UNITS/ML 1ML VIAL ONE (18:48)
[2018-02-26] MEDS: SODIUM CHLORIDE 1,000 ML IV SCH (18:52)
--- NOTE | 2018-02-26 19:05 | PN ---
Teaching Attending Note Name of Resident: Shan Valverde ATTENDING PHYSICIAN STATEMENT I saw and evaluated the patient. I reviewed the resident's note and discussed the case with the resident. I agree with the resident's findings and plan as documented. SUBJECTIVE: OBJECTIVE: Vital Signs Period Temp Pulse Resp BP Sys/Pop Pulse Ox Last 24 Hr 98.2 F 62-76 13-20 92-126/65-88 98-100 Laboratory Tests 02/26/18 02/26/18 02/26/18 11:41 12:15 12:15 WBC 8.0 RBC 4.42 Hgb 13.8 Hct 41.5 MCV 94.0 MCH 31.3 MCHC 33.3 RDW 12.9 Plt Count 352 MPV 9.0 Neutrophils % 65.9 D Lymphocytes % 21.4 D Monocytes % 10.5 H Eosinophils % 1.4 Basophils % 0.8 Nucleated RBC % 0 PT with INR 11.70 INR 1.04 Sodium Potassium Chloride Carbon Dioxide Anion Gap BUN Creatinine Creat Clearance w eGFR POC Glucometer 87.56314 Random Glucose Calcium Total Bilirubin AST ALT Alkaline Phosphatase Creatine Kinase Troponin I Total Protein Albumin Triglycerides Cholesterol Total LDL Cholesterol HDL Cholesterol Serum , Qual Blood Type Antibody Screen 02/26/18 02/26/18 02/26/18 12:15 12:15 14:44 WBC RBC Hgb Hct MCV MCH MCHC RDW Plt Count MPV Neutrophils % Lymphocytes % Monocytes % Eosinophils % Basophils % Nucleated RBC % PT with INR INR Sodium 137 Potassium 5.3 H Chloride 105 Carbon Dioxide 26 Anion Gap 6 L BUN 7 Creatinine 0.7 Creat Clearance w eGFR > 60 POC Glucometer Random Glucose 96 Calcium 9.0 Total Bilirubin 0.4 D AST 20 ALT 15 Alkaline Phosphatase 60 Creatine Kinase 76 Troponin I < 0.02 Total Protein 8.2 Albumin 3.6 Triglycerides 76 Cholesterol 206 H Total LDL Cholesterol 141 H HDL Cholesterol 53 Serum , Qual Negative Blood Type Cancelled Antibody Screen Cancelled ASSESSMENT AND PLAN:
--- NOTE | 2018-02-26 20:35 | CONSULT ---
Consult - text type - Consultation Consultation Note: NEUROLOGY CONSULTATION is greatly appreciated: This 47 yo RH m woman with h/o long QT is s/p ICD implantation. H/O GI endocrine tumor. Seen by me 04/11/11 after she developed B/L LE numbness and weakness after tubal ligation which improved spontaneously. C/O extreme stress x 3 months. Produced by work and social situations (ie: she hasn't seen her 11 yo son in 3 years, taken away by the courts) Hasn't slept in 3 months due to numbness and burning pains in both and and both legs. H/O migraine headaches since age 21. Usually wanda- or holocranial throbbing headaches with nausea, vomiting, photophobia and phonophobia. Daioly OTC analgesics. Oxycodone for the last 4 days. No BM. 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 Came to the ED today because she "wanted to find out what was going on." CT of head (reviewed): normal Labs normal except for borderline cholesterol. U/A not found RICK: No external head trauma. Neck supple. No bruits. Cor reg NEURO: Awake, alert. Resting with eyes closed. Well-oriented and fluent. Gestures, involuntarily with both hands at her sides. CN II-XII: normal Motor: Arms held overhead fall directly to the sides. Legs slide, symmetrically from a bended knee position. Normal reflexes. Toes downgoing Coord: No obvious dystaxia Sensory: Feels pinch all 4's. IMP: Probably a normal neurological exam with nonphysiological pattern of weakness. Migraine headaches/Status migrainosis/drug rebound headaches Burning in arms and legs/insomnia probably due to Restless limbs Syndrome (RLS). Depression Suggest: Check UA; B12; TSH; Fe++; TIBC; Ferritin Begin Depakote ER 250 mg qhs x 4 days then 500mg qhs D/C all OTC analgesics and narcotics. Rx constipation. Give sumatriptan 50 mg PO PRN headaches. Neuro f/u as out patient for continued migraine prophylaxis and possible Dopamine agonist Rx of RLS. Psyche consultation. However, I would strongly recommend Bupropion XL 150 mg x 1 month then 300 mg (Will not worsen RLS). Thank you very much, Daren Clark MD
[2018-02-26 21:29] LABS: URINE APPEARANCE SLCLOUDY; URINE BILIRUBIN NEGATIVE (<2.0 mg/dL); URINE COLOR YELLOW; URINE GLUCOSE (UA) 1+ (NEGATIVE); URINE KETONE 1+ (NEGATIVE); URINE NITRITE POSITIVE (NEGATIVE); URINE PROTEIN NEGATIVE (NEGATIVE); URINE UROBILINOGEN NEGATIVE mg/dL (0.2-1.0)
[2018-02-26 21:32] LABS: URINE LEUK ESTERASE 2+ (NEGATIVE)
[2018-02-26 21:35] LABS: EPI CELLS FEW /HPF (FEW); URINE HYALINE CAST 1 /lpf; URINE MUCUS MODERATE
[2018-02-27 04:07] VITALS: BMI 25.6
[2018-02-27] MEDS: SODIUM CHLORIDE 1,000 ML IV SCH ×2 (06:55→19:40)
[2018-02-27] MEDS ORDERED: CEFTRIAXONE 1 GM in DEXTROSE 5%-WATER - 50 ML IVPB SCH (07:30)
--- NOTE | 2018-02-27 08:00 | HOSP ---
Subjective - Review of Symptoms Subjective: neurology consult noted and appreciated recommendations noted and followed up. Labs that were requested were ordered Depakote ordered stool softeners ordered UA results noted and nurse instructed to first send out a urine culture and then give one gram of ceftriaxone-further ABx to be determined by primary team Patient signed out to Attending caring for the patient Physical Examination Vital Signs: Vital Signs Temperature 98.4 F 02/27/18 03:52 Pulse Rate 62 02/27/18 03:52 Respiratory Rate 18 02/26/18 21:12 Blood Pressure 116/65 02/27/18 03:52 O2 Sat by Pulse Oximetry (%) 98 02/27/18 03:52 Labs: CBC, BMP 02/26/18 12:15 02/26/18 12:15 Visit type - Emergency Visit Emergency Visit: Yes ED Registration Date: 02/26/18 Care time: The patient presented to the Emergency Department on the above date and was hospitalized for further evaluation of their emergent condition. - New Patient This patient is new to me today: No - Critical Care Critical Care patient: No
[2018-02-27] MEDS ORDERED: cefTRIAXone SODIUM 1 GM VIAL ONE (08:52)
[2018-02-27] MEDS ORDERED: DEXTROSE 5%-WATER - 50 ML IVPB ONE (08:52)
[2018-02-27] MEDS: DOCUSATE SODIUM 100 MG CAPSULE (FP) PO SCH ×3 (09:23→21:21)
[2018-02-27 09:34] LABS: CHLORIDE 110 mmol/L (98-107); POTASSIUM 4.4 mmol/L (3.5-5.1); SODIUM 142 mmol/L (136-145)
[2018-02-27 10:51] LABS: ANION GAP 9 (8-16); BLOOD UREA NITROGEN 5 mg/dL (7-18); CALCIUM 8.1 mg/dL (8.5-10.1); CO2 23 mmol/L (21-32); CREATININE 0.4 mg/dL (0.55-1.02); GLUCOSE,RANDOM 81 mg/dL (74-106)
--- NOTE | 2018-02-27 17:32 | PN ---
Teaching Attending Note Name of Resident: Babita Houser ATTENDING PHYSICIAN STATEMENT I saw and evaluated the patient. I reviewed the resident's note and discussed the case with the resident. I agree with the resident's findings and plan as documented. SUBJECTIVE: reports improvement in her GARCÍA . no visual changes now , but sometimes they get blurry. NO weakness . has numbness and tingling in hands and feet with burning in legs . feels a little better. reports some improvement urinary frequency OBJECTIVE: NAD , slow response . cooperative. flat affect. MMM, no facial droop CV: RRR, no MRG Lungs: CTAB ext: no edema or erythema Neuro : EOMI, round equal pupils reactive to light , tongue and uvula at mid line. nl facial sensation , no facial droop. strength : poor effort , although seen adjusting her positioning bed and lifting her self. shoulder shru/5. biceps, triceps and deltoid 4/5 . 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 bilateral hip flexion 3/5 b/l. knee flexion and extension 4/5 . ankle dorsiflexion and plantarflexion 4/5 bilaterally reflexes 1+ knee jerk and biecps b/l nl sensation to light touch b/l ASSESSMENT AND PLAN: 47 y/o lady with h/o prolonged QTc with ICD placement , Migraines , h/o colon endocrine tumor , and uterine cancer s/p hysterectomy who was brought due to an episode of unresponsiveness and shaking. 1- Episode of unresponsiveness: unclear etiology. possible catatonia . no signs of CONTACT LENS CUTTER infection . non focal neuro exam ( although poor effort ) B12, TSH, folate NL psych eval pending 2- Shaking: description does not fit description of seizure . 3- Status migrainosis: improved - give IVF - depakote added - f/u as outpt - lipid panel reviewed. LDL 141. 10 yr risk for CAD 0.5% per [facility]atum risk assessment . no need for statins at this time 4-uncomplicated UTI: - cont ceftriaxone - follow urine cx dispo: awaiting psych eval . PT eval
--- NOTE | 2018-02-27 17:45 | PN ---
Physical Exam: SUBJECTIVE: Patient seen and examined at bedside. Overnight, pt lethargic. This AM, pt c/o continued headache, however has improved throughout the afternoon. With paresthesias in upper and lower extremities. Expressed concerns over condition, support given. During exam, with decreased effort. Denies fever, chills, SOB, chest pain or pressure, or changes in urinary or bowel function. OBJECTIVE: Vital Signs Period Temp Pulse Resp BP Sys/Pop Pulse Ox Last 24 Hr 98.1 F-98.7 F 62-72 14-20 92-116/60-65 98-100 GENERAL: The patient is resting in bed. awake, alert, and fully oriented, in no acute distress. HEAD: Normal with no signs of trauma. EYES: PERRL, extraocular movements intact, sclera anicteric, conjunctiva clear. ENT: Ears normal, nares patent, oropharynx clear without exudates, moist mucous membranes. NECK: Trachea midline, supple. LUNGS: Breath sounds equal, clear to auscultation bilaterally, no wheezes, no crackles, no accessory muscle use. HEART: Regular rate and rhythm, S1, S2 without murmur, rub or gallop. ABDOMEN: Soft, nontender, nondistended, normoactive bowel sounds, no guarding, no rebound EXTREMITIES: 2+ dp, pt pulses, warm, well-perfused, no edema. NEUROLOGICAL: Cranial nerves II through XII grossly intact, no facial asymmetry. uvula midline. however pt with poor compliance during exam. With 1/5 motor strength in upper and lower extremities, unable to do finger to nose test. hypoactive reflexes (1+)- patellar, biceps reflex. sensation intact throughout. PSYCH: Anxious mood, normal affect. SKIN: Warm, dry, normal turgor, no rashes or lesions noted Laboratory Results - last 24 hr 02/26/18 02/26/18 02/27/18 11:41 21:20 08:00 Sodium 142 Potassium 4.4 Chloride 110 H Carbon Dioxide 23 Anion Gap 9 BUN 5 L Creatinine 0.4 L POC Glucometer 87.77047 Random Glucose 81 Calcium 8.1 L Ferritin 53.356 Vitamin B12 201 Serum Folate 20 H TSH 1.54 Urine Color Yellow Urine Appearance Slcloudy Urine pH 5.0 Ur Specific [place] 1.015 Urine Protein Negative Urine Glucose (UA) 1+ H Urine Ketones 1+ H Urine Blood 2+ H Urine Nitrite Positive Urine Bilirubin Negative Urine Urobilinogen Negative Ur Leukocyte Esterase 2+ H Urine WBC (Auto) 28 Urine RBC (Auto) 4 Ur Epithelial Cells Few Hyaline Casts 1 Urine Mucus Moderate Active Medications Generic Name Dose Route Start Last Admin Trade Name Vanita PRN Reason Stop Dose Admin Divalproex Sodium 250 mg 02/27/18 22:00 Depakote *Er* - PO 03/02/18 22:01 HS AAKASH Divalproex Sodium 500 mg 03/03/18 22:00 Depakote *Er* - PO HS AKAASH Docusate Sodium 100 mg 02/27/18 08:00 02/27/18 14:48 Colace - PO Not Given TID AAKASH Sodium Chloride 1,000 mls @ 50 mls/hr 02/26/18 18:15 02/27/18 06:55 Normal Saline - IV 02/27/18 18:11 50 mls/hr ASDIR AAKASH Administration Ceftriaxone Sodium 1 gm/ 50 mls @ 100 mls/hr 02/27/18 07:30 02/27/18 09:23 Dextrose IVPB 02/28/18 07:29 100 mls/hr ONCE AAKASH Administration IMAGING -02/26/18: Head CT non-con: mild volume loss without gross evidence of acute intracranial pathology. Mild ethmoid chronic sinusitis. -02/26/18: CXR: shallow inspiration with low lung volumes. No evidence of acute infiltrate, pulmonary vascular congestion or pleural effusion ASSESSMENT/PLAN: 47 y/o F with PMH prolonged Qtc, ICD placement, migraines, h/o colon endocrine tumor, uterine CA s/p hysterectomy who presented to the ED with unresponsiveness and shaking. #Unresponsive with shaking, ?catatonia 2/2 stress -pt with recent life stressors, possible catatonia -with mutism prior to admission -pt unable to complete neuro exam; with decreased effort -recently became vegetarian, however would take long time to deplete stores -B12, Folate, TSH -WNL, r/o reversible causes -F/u iron studies ; FE, TIBC, transferrin. Currently without anemia -Seen by neuro- Dr. Clark -Psych - Dr. Anders #Status migraniosus -Pt still with c/o migraine, however improved -Continue gentle IVF -Depakote 250 mg PO HS (4 days) > 500mg PO HS -Sumatriptan 50mg PO q6h PRN for headache -Neuro- Dr. Clark -Will need outpatient follow-up #UTI -as per pt, does not empty bladder frequently -UA: 2+ leuk esterase, 28 wbcs, with mild suprapubic tenderness - later in afternoon -continue Rocephin 1gm IVPB qd -F/u UCx #F/E/N IV NS 75 cc/hr - gentle hydration Continue to follow lytes Regular diet #PPX DVT: SCD's, early ambulation has been OOB frequently. <48 hrs stay #Dispo -Awaiting evaluation by Psych, PT -d/c planning Visit type - Emergency Visit Emergency Visit: No - New Patient This patient is new to me today: Yes Date on this admission: 02/27/18 - Critical Care Critical Care patient: No
[2018-02-27] MEDS ORDERED: SUMAtriptan SUCCINATE 50 MG TABLET PO PRN (17:58)
[2018-02-27] MEDS ORDERED: SUMAtriptan SUCCINATE 50 MG TABLET PO ONE ×2 (18:30→20:30)
--- NOTE | 2018-02-27 18:42 | CON.PSY ---
Psychiatry Consult Chief Complaint: I am ok now. Feeling a bit weak and feelmmy feet are w2arm. Patient admitted with acutec AMS. Patient reports she has taken some old pain meds and became confused. - Previous Psychiatric Treatment Outpatient: None Inpatient: None - Previous Substance Abuse Treatment Outpatient: None Inpatient: None - Current Medications Current Medications: Active Medications Divalproex Sodium (Depakote *Er* -) 250 mg PO HS AAKASH Stop: 03/02/18 22:01 Divalproex Sodium (Depakote *Er* -) 500 mg PO HS AAKASH Docusate Sodium (Colace -) 100 mg PO TID AAKASH Last Admin: 02/27/18 14:48 Dose: Not Given Ceftriaxone Sodium 1 gm/ (Dextrose) 50 mls @ 100 mls/hr IVPB ONCE AAKASH Stop: 02/28/18 07:29 Last Admin: 02/27/18 09:23 Dose: 100 mls/hr Sumatriptan Succinate (Imitrex -) 50 mg PO ONCE ONE Stop: 02/27/18 20:31 - Allergies Allergies: Allergies Allergy/AdvReac Type Severity Reaction Status Date / Time hydromorphone HCl Allergy Verified 02/26/18 11:51 [From Dilaudid] vancomycin Allergy Verified 02/26/18 11:51 - Current Living Status Usual Living Arrangement: With Spouse - Current Mental Status Evaluation Appearance: Well Groomed Attitude: Cooperative - Affect Affect: Constrictive Appropriateness: Appropriate to Content - Mood Mood: Euthymic - Speech/Language Expressive: Coherent - Psychomotor Activity Psychomotor Activity: Slowed - Thought Process Thought Process: Intact - Thought Content Hallucinations: Absent Delusions: Absent - Self Perception Self Perception: No Impairment - Cognition Attention: Alert Orientation: Time Memory, Immediate Recall: Intact Memory, Short Term: 3/3 Memory, Remote with Promptin/3 - Concentration Serial Sevens Intact: Yes Simple Calculations Intact: Yes - Abstraction Proverb Interpretation: Intact Judgement: Intact - Insight Insight: Intact - Impulse Control Impulse Control: Minimally Impaired - Suicidal Ideation Suicidal Ideation: No - Homicidal Ideation Homicidal Ideation: No Assessment/Plan 1) No psych meds needed at this time. 2) will follow as cneeded.
--- NOTE | 2018-02-27 19:20 | CONSULT ---
Consult - text type - Consultation Consultation Note: NEUROLOGY FOLLOW-UP: Events reviewed and discussed with RN. More "lethargic" and less interactive this morning. Would not eat breakfast. Then, her "sat her up" and bathed her. Decreased headache today. Arms moving "alot better" and legs "a little bit." C/O Hot burning and cold sensations in the legs>arms. EXAM: Awake, alert, smiling, cheerful, happy ([place]." Normal speech. CN II-XII: Normal Motor: No drift. Normal arm strength. Elevates for legs off the bed from the hips. Normal knee extension when I elevate the thighs. Normal reflexes. No Babins[place]is Normal vibration all fours. IMP: Non-physiological exam Probably normal Migraine headaches. Restless limbs syndrome (RLS) Depression with possible conversion reaction. SUGGEST: Continue depakote. Add pramipexole .125 q HS OO BEd to chair. Check orthostatic bP's Thank you very much, Daren Clark MD
[2018-02-27] MEDS ORDERED: PT OWN MED DRAWER 7, Y5N ONE (20:55)
[2018-02-27] MEDS ORDERED: PRAMIPEXOLE DIHYDROCHLORIDE 0.125 MG TABLET PO SCH (21:00)
[2018-02-27] MEDS: DIVALPROEX NA *ER* EXTEND REL 250 MG TABLET.SA PO SCH (21:59)
[2018-02-28] MEDS: SODIUM CHLORIDE 1,000 ML IV SCH (02:50)
[2018-02-28] MEDS: DOCUSATE SODIUM 100 MG CAPSULE (FP) PO SCH ×2 (06:11→14:30)
[2018-02-28 08:07] LABS: EOS % 5.7 % (0-4.5); HEMATOCRIT 37.8 % (32.4-45.2); HEMOGLOBIN 12.8 GM/dL (10.7-15.3); LYMPH % 40.7 % (8-40); MCH 31.2 pg (25.7-33.7); MCHC 33.8 g/dl (32.0-36.0); MEAN CELL VOLUME 92.4 fl (80-96); MEAN PLT VOLUME 8.8 fl (7.5-11.1); MONO % 10.6 % (3.8-10.2); PLATELET COUNT 350 K/MM3 (134-434); RBC 4.09 M/mm3 (3.60-5.2); RDW 12.7 % (11.6-15.6); WHITE BLOOD COUNT 5.3 K/mm3 (4.0-10.0)
[2018-02-28 08:11] LABS: SERUM IRON SATURATION 31 % (15-55); TOTAL IRON BINDING CAPACITY 221 ug/dL (250-450); TRANSFERRIN 173 mg/dL (200-370); UIBC 153 ug/dL (131-425)
[2018-02-28 08:16] LABS: CHLORIDE 108 mmol/L (98-107); POTASSIUM 4.4 mmol/L (3.5-5.1); SODIUM 140 mmol/L (136-145)
[2018-02-28 08:38] LABS: BLOOD UREA NITROGEN 6 mg/dL (7-18)
[2018-02-28 08:47] LABS: ANION GAP 8 (8-16); CALCIUM 8.2 mg/dL (8.5-10.1); CO2 24 mmol/L (21-32); CREATININE 0.5 mg/dL (0.55-1.02); GLUCOSE,RANDOM 94 mg/dL (74-106); MAGNESIUM 2.1 mg/dL (1.8-2.4); PHOSPHOROUS 3.9 mg/dL (2.5-4.9)
[2018-02-28] MEDS ORDERED: SODIUM CHLORIDE 1,000 ML IV SCH (11:00)
--- NOTE | 2018-02-28 13:26 | EKG ---
Test Reason : Blood Pressure : / mmHG Vent. Rate : 061 BPM Atrial Rate : 061 BPM P-R Int : 122 ms QRS Dur : 080 ms QT Int : 452 ms P-R-T Axes : 038 021 019 degrees QTc Int : 455 ms NORMAL SINUS RHYTHM LOW VOLTAGE QRS BORDERLINE ECG WHEN COMPARED WITH ECG OF 26-FEB-2018 12:06, NO SIGNIFICANT CHANGE WAS FOUND Confirmed by EILEEN HADLEY MD ([id number]) on 02/28/2018 1:25:46 PM Referred By: Confirmed By:EILEEN HADLEY MD
--- NOTE | 2018-02-28 13:34 | PN ---
Teaching Attending Note Name of Resident: Babita Houser ATTENDING PHYSICIAN STATEMENT I saw and evaluated the patient. I reviewed the resident's note and discussed the case with the resident. I agree with the resident's findings and plan as documented. SUBJECTIVE: No fever or chills. had squeezing chest pain last night all night long. CP returned during the encounter. denies any SOB, or cough. No radiation to neck or arms. she requested to see Dr. Colon . feels much better today . feels strong again and in good mood . ambulated on her own in room OBJECTIVE: NAD , smiling, looks happy and very cooperative MMM, no facial droop CV: RRR, no MRG Lungs: CTAB ext: no edema or erythema Neuro : EOMI, round equal pupils reactive to light , tongue and uvula at mid line. nl facial sensation , no facial droop. strength : 5/5 in upper and lower extremities proximally and distally. reflexes 2+ knee jerk and biecps b/l Nl sensation to light touch b/l Nl nose to finger ASSESSMENT AND PLAN: 47 y/o lady with h/o prolonged QTc with ICD placement , Migraines , h/o colon endocrine tumor , and uterine cancer s/p hysterectomy who was brought due to an episode of unresponsiveness and shaking. 1- Episode of unresponsiveness: unclear etiology. possible catatonia or conversion disorder. resolved. back to NL. sen by neuro and Psych . 2- Shaking: Not a seizure started on pramipexole 3- Status migrainosis: improved with IVF and depakote - cont depakote and increase to 500 HS on 03/03 - f/u as outpt 4-Uncomplicated UTI: - on ceftriaxone. Urine cx pending . can switch to PO abx and dc home 5- CP: atypical in nature. EKG obtained and reviewed this am, no change from prior. pain does not fit description of ICD shocks. pt requested card , will follow Recs. Probably her ICD can be interrogated as out pt Dispo:awaiting card eval. might dc home today and urine cx to be followed
[2018-02-28] MEDS ORDERED: PT OWN MED DRAWER 7, Y5N ONE (14:22)
[2018-02-28] MEDS: DIVALPROEX NA *ER* EXTEND REL 250 MG TABLET.SA PO SCH (14:30)
[2018-02-28 14:36] VITALS: BP 100/70; PULSE 77; TEMP 98.7
--- NOTE | 2018-02-28 22:08 | DS ---
Physical Exam: SUBJECTIVE: Patient seen and examined at bedside. No acute events overnight. Today, pt states that she is feeling much better and is looking forward to going home. Without headache. Denies fever, chills, SOB, or changes in urinary or bowel function. OBJECTIVE: Vital Signs Period Temp Pulse Resp BP Sys/Pop Pulse Ox Last 24 Hr 98.4 F-98.7 F 62-86 20-20 93-118/60-87 99-99 PHYSICAL EXAM GENERAL: The patient is content. Pleasant. alert, and fully oriented, in no acute distress. HEAD: Normal with no signs of trauma. EYES: PERRL, extraocular movements intact, sclera anicteric, conjunctiva clear. ENT: Ears normal, nares patent, oropharynx clear without exudates, moist mucous membranes. NECK: Trachea midline, supple. LUNGS: Breath sounds equal, clear to auscultation bilaterally, no wheezes, no crackles, no accessory muscle use. HEART: Regular rate and rhythm, S1, S2 without murmur, rub or gallop. ABDOMEN: Soft, nontender, nondistended, normoactive bowel sounds, no guarding, no rebound EXTREMITIES: 2+ pt pulses, warm, well-perfused, no edema. NEUROLOGICAL: Cranial nerves II through XII grossly intact. Motor strength 4/5 in upper and lower extremities. cerebellar fnc intact. 1+ patellar reflexes b/ l. sensation intact throughout PSYCH: positive mood, normal affect SKIN: Warm, dry, normal turgor, no rashes or lesions noted. LABS Laboratory Results - last 24 hr 02/27/18 02/28/18 02/28/18 08:00 07:00 07:00 WBC 5.3 D RBC 4.09 Hgb 12.8 Hct 37.8 MCV 92.4 MCH 31.2 MCHC 33.8 RDW 12.7 Plt Count 350 MPV 8.8 Neutrophils % 42.0 L D Lymphocytes % 40.7 H D Monocytes % 10.6 H Eosinophils % 5.7 H D Basophils % 1.0 Nucleated RBC % 0 Sodium 140 Potassium 4.4 Chloride 108 H Carbon Dioxide 24 Anion Gap 8 BUN 6 L Creatinine 0.5 L Random Glucose 94 Calcium 8.2 L Phosphorus 3.9 Magnesium 2.1 Iron 68 TIBC 221 L Iron Saturation 31 Transferrin 173 L Creatine Kinase Additional tests 02/26/18 02/26/18 02/27/18 12:15 21:20 08:00 Ferritin 53.356 Creatine Kinase Troponin I < 0.02 Cholesterol 206 H Total LDL Cholesterol 141 H Vitamin B12 201 Serum Folate 20 H TSH 1.54 Urine Nitrite Positive Ur Leukocyte Esterase 2+ H Urine WBC (Auto) 28 Urine RBC (Auto) 4 02/27/18 02/28/18 08:00 09:15 Iron 68 TIBC 221 L Iron Saturation 31 Transferrin 173 L Ferritin Creatine Kinase 64 Troponin I < 0.02 IMAGING -02/26/18: Head CT non-con: mild volume loss without gross evidence of acute intracranial pathology. Mild ethmoid chronic sinusitis. -02/26/18: CXR: shallow inspiration with low lung volumes. No evidence of acute infiltrate, pulmonary vascular congestion or pleural effusion Microbiology -02/28/18: UCx -pending HOSPITAL COURSE: Date of Admission:02/26/18 Date of Discharge: 02/28/18 Admit diagnosis: migraine headache, altered mental status 47 y/o F with PMH long QT syndrome (s/p [employer] ICD), endocrine tumor in colon, uterine CA s/p hysterectomy, who presents to the ED after being seen at an urgent care for headaches with shaking and AMS. As per pt, over the past 3 -4 months, she has suffered from severe headaches. Pt states that they start on her forehead, radiate bilaterally and are exacerbated with loud sounds and bright lights. Prior to admission, she sought evaluation for such GARCÍA at an urgent care, and was found to experience a change in mental status as per . Pt suddenly began shaking and became mute. For this reason, and family sought further evaluation at [facility] ED. Pt endorses recent period of increased stress in her family, as well as increased urinary frequency during this time. Pt admitted for migraine GARCÍA, altered mental status. While hospitalized, d/t pt's severe GARCÍA, she underwent a head CT-non con which was negative for any acute intracranial pathology. No bleed was noted. She was also cleared by psychiatry, as she did not need any further intervention. As per neuro recs, she was maintained on the first two doses of Depakote 250mg PO qd, and is being d/c on two additional daily doses of 250mg. After, she will start on a regimen of 500mg qHS. For pt's paresthesias in her lower extremities, she was started on pramipexole 0.125 mg PO qd, and this greatly alleviated her sx while she was on the medical floor. Her sx were further explored through B12, TSH and folate, all of which were WNL. For her UTI, she was treated with rocephin 1g IVPB qd, and is discharged on vantin 200mg PO BID for one additional day. She will follow up with her primary care doctor in a week, and go over her urine culture at that time (which is still pending). She will also follow-up with neuro, as well as her cardiologists ([facility] EP physician) within the week. Discussed with patient. Prior to d/c, she developed concern for chest pressure, however trops were trended and negative x 2, no significant changes seen on EKG, and pt cleared and evaluated by cardio prior. Minutes to complete discharge: 50 Discharge Summary Reason For Visit: MIGRAINE HEADACHE; ALTERED MENTAL STATUS Condition: Stable - Instructions Diet, Activity, Other Instructions: You were recently in the hospital because your body was shaking and you had a migraine. While you were in the hospital, you were seen by the neurology, psychiatry, cardiology, and medicine teams. You had a CT scan done of your head which was negative for any bleed. You were found to have a urinary tract infection. You are being sent home on the following medications: -Depakote 250 mg (one capsule) by mouth tomorrow (03/01, 03/02). -Depakote 500mg (one capsule) at night, by mouth on the following days (03/03) onward. This is for migraines. -Pramipexole 0.125mg by mouth daily, at night: for restless legs. This should aid the numbness and tingling that you feel in your legs when you lay still. -vantin 200mg twice a day tomorrow (on 03/01) for your urinary tract infection You may continue your home medications. We would like you to follow up with: -your primary care physician - 1 week. He will have access to the results of your urine culture in the system. -the neurologist that saw you in the hospital, Dr. Clark - 1 week. -your professor of finance (printed circuit board panels developer) at [facility] in the [facility], Dr. Jeff Lopez - 1 week -your professor of finance, Dr. Colon - 1 week ; to follow up interrogation of your device If you develop chest pain, or shortness of breath, please go to the hospital. We hope you feel better soon. Referrals: Jeff Lopez MD [Other] - 1 Week Daren Clark MD [Staff Physician] - 1 Week Hector Sawyer MD [Primary Care Provider] - 1 Week Augie Colon MD [Staff Physician] - 1 Week Disposition: HOME - Home Medications Comprehensive Discharge Medication List: Ambulatory Orders Cefpodoxime Proxetil [Vantin -] 200 mg PO Q12H #2 tablet 02/28/18 Divalproex *ER* [Depakote *ER* -] 250 mg PO HS #2 tablet. 02/28/18 Divalproex *ER* [Depakote *ER* -] 500 mg PO HS #30 tablet. 02/28/18 Pramipexole Dihydrochloride [Mirapex -] 0.125 mg PO DAILY@2100 #30 tablet This patient is new to me today: No Emergency Visit: No Critical Care patient: No - Discharge Referral Referred to [facility] No
[2018-03-03] MEDS ORDERED: DIVALPROEX NA *ER* EXTEND REL 500 MG TABLET.SA (FP) PO SCH (22:00)
== END 2018-02-28 16:00 | disposition home or self-care (01) ==
LOC: JER 11:28 → JERBED 16:58 → J6S 02-27 03:48
PROVIDERS: ADMIT Internal Medicine; ATTEND Internal Medicine
PROC: 3E03329 Introduction of Other Anti-infective into Peripheral Vein, Percutaneous Approach (ICD-10-PCS; principal; 2018-02-26)
PROC: 3E0333Z Introduction of Anti-inflammatory into Peripheral Vein, Percutaneous Approach (ICD-10-PCS; 2018-02-26)
PROC: 3E0337Z Introduction of Electrolytic and Water Balance Substance into Peripheral Vein, Percutaneous Approach (ICD-10-PCS; 2018-02-26)
PROC: 3E033GC Introduction of Other Therapeutic Substance into Peripheral Vein, Percutaneous Approach (ICD-10-PCS; 2018-02-26)
PROC: 3E013GC Introduction of Other Therapeutic Substance into Subcutaneous Tissue, Percutaneous Approach (ICD-10-PCS; 2018-02-26)
DX: G43.001 Migraine without aura, not intractable, with status migrainosus (principal); R41.82 Altered mental status, unspecified; K21.9 Gastro-esophageal reflux disease without esophagitis; I45.81 Long QT syndrome; N39.0 Urinary tract infection, site not specified; Z85.01 Personal history of malignant neoplasm of esophagus; Z95.810 Presence of automatic (implantable) cardiac defibrillator; R25.1 Tremor, unspecified; R20.2 Paresthesia of skin; F43.9 Reaction to severe stress, unspecified
CPT/HCPCS: 36415; 70450-TC; 71045-TC-FY; 80048; 80053; 81003; 81015; 82465; 82550; 82607; 82728; 82746; 82962; 83540; 83550; 83718; 83721; 83735; 84100; 84443; 84466; 84478; 84484; 84703; 85025; 85610; 87086; 93005; 93010; 97116-GP; 97162-GP; 99285-25; G0378; J1644; J7030